=== PATIENT | female | born 1965 | race American Indian/Alaskan Native ===

== ENCOUNTER 2019-07-03 21:06 | Emergency (ER) | payer OTHER ==
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
[2019-07-03 21:46] VITALS: BP 170/98
--- NOTE | 2019-07-03 23:23 | XRay Report ---
CERVICAL SPINE 4 VIEWS INDICATION / CLINICAL INFORMATION: neck pain. COMPARISON: None available. FINDINGS: AP, lateral, swimmer's lateral and odontoid views of the cervical spine. VERTEBRAE: No acute fracture. No significant malalignment. Large anterior disc osteophyte complexes a re present. Limited visualization of C7. PARASPINAL SOFT TISSUES:No significant abnormality. ADDITIONAL FINDINGS: None. IMPRESSION: 1. No acute abnormality of the cervical spine is radiographically evident. CT offers for greater sens itivity and should be ordered if there is persistent clinical concern for acute cervical spine injury . Signer Name: Stephen Tierney MD Signed: 07/03/2019 11:18 PM Workstation Name: [id number]
[2019-07-04] MEDS ORDERED: TORADOL IM ONE (02:22)
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
== END 2019-07-04 03:50 | disposition home or self-care (01) ==
LOC: ED 21:06
DX: S16.1XXA Strain of muscle, fascia and tendon at neck level, initial encounter (principal); M25.511 Pain in right shoulder; I10 Essential (primary) hypertension; E11.9 Type 2 diabetes mellitus without complications; Z79.899 Other long term (current) drug therapy; V43.62XA Car passenger injured in collision with other type car in traffic accident, initial encounter; Y93.89 Activity, other specified; Y92.488 Other paved roadways as the place of occurrence of the external cause; Y99.8 Other external cause status
CPT/HCPCS: 72040; 96372; 99283; J1885